=== PATIENT | female | born 1985 | race Two or more races ===

== ENCOUNTER 2019-08-23 06:17 | Emergency (ER) | payer OTHER ==
[~2019-08-23] VITALS: Ht 157.5 cm; Wt 60.8 kg
[2019-08-23] MEDS ORDERED: INTESTINEX680 M1 PO (10:18)
== END 2019-08-23 10:36 | disposition home or self-care (01) ==
LOC: ER 06:17
DX: K29.60 Other gastritis without bleeding (principal)